=== PATIENT | female | born 1950 | race Caucasian/White ===

== ENCOUNTER 2021-05-31 17:03 | Emergency (ER) | payer BC ==
[~2021-05-31] VITALS: Ht 165.1 cm; Wt 70.3 kg
--- NOTE | 2021-05-31 17:30 | NUR ---
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 PATIENT A/OX4, BREATHING EVEN AND UNLABORED, NO SOB NOTED.
--- NOTE | 2021-05-31 17:40 | NUR ---
PAGED DR. QUIROZ. NOW SPEAKING TO DR. CRANE
--- NOTE | 2021-05-31 17:55 | NUR ---
SIPHONER AT BEDSIDE FOR BLOOD DRAW
[2021-05-31 18:03] LABS: BASOPHILS # (AUTO) 0.1 K/uL (0.0-0.2); BASOPHILS % (AUTO) 1.1 % (0.0-2.0); EOSINOPHILS % (AUTO) 2.8 % (0.0-6.0); HEMATOCRIT 36 % (33-45); LYMPHOCYTES # (AUTO) 1.8 K/uL (0.8-4.8); LYMPHOCYTES % (AUTO) 20.8 % (20.0-44.0); MEAN CORPUSCULAR HGB CONC 34 g/dl (31.0-36.0); MEAN CORPUSCULAR VOLUME 89 fL (82-100); MONOCYTES # (AUTO) 0.6 K/uL (0.1-1.30); MONOCYTES % (AUTO) 7.3 % (2.0-12.0); PLATELET COUNT (AUTO) 383 K/uL (150-450); RED BLOOD CELL COUNT(AUTO) 4.02 MIL/uL (4.0-5.2); WHITE BLOOD COUNT (AUTO) 8.9 K/uL (4.3-11.0)
[2021-05-31 18:10] LABS: CALCIUM, SERUM 8.8 mg/dL (8.5-10.1); CREATININE 0.7 mg/dL (0.6-1.3); POTASSIUM 3.8 mmol/L (3.5-5.1)
--- NOTE | 2021-05-31 20:34 | NUR ---
TOOK OVER PT CARE. PT AAOX4. RESTING COMFORTABLY. ON MONITOR, AND PULSE OX.
[2021-05-31] MEDS ORDERED: ONDANSETRON HCL/PF 4 MG/2 ML VIAL ONE (23:15)
[2021-05-31] MEDS ORDERED: MORPHINE SULFATE INJ 4 MG/ML DISP.SYRIN ONE (23:15)
[2021-05-31] MEDS ORDERED: MORPHINE SULFATE INJ 2 MG/ML DISP.SYRIN IV ONE (23:30)
[2021-05-31] MEDS ORDERED: ONDANSETRON HCL/PF 4 MG/2 ML VIAL IV ONE (23:30)
--- NOTE | 2021-05-31 23:31 | NUR ---
PT REPOSITIONED, RESTING WELL. VSS. CALL LIGHT AT BEDSIDE.
--- NOTE | 2021-06-01 02:15 | NUR ---
PT ASLEEP, RESTING COMFORTABLY.
[2021-06-01] MEDS ORDERED: MORPHINE SULFATE INJ 2 MG/ML DISP.SYRIN ONE (04:06)
[2021-06-01] MEDS ORDERED: MORPHINE SULFATE INJ 2 MG/ML DISP.SYRIN IV ONE (04:30)
--- NOTE | 2021-06-01 05:43 | NUR ---
PT MOVED TO ANOTHER ROOM, IN BED, COMFORTABLY. AWARE OF PLAN OF CARE.
--- NOTE | 2021-06-01 12:18 | NUR ---
RECEIVED A CALL FROM [facility] , PATIENT HAS AN AUTHORIZATION FOR TRANSFER TO [facility], AUTH # IS [id number].
--- NOTE | 2021-06-01 12:39 | NUR ---
[phone] -[facility]
--- NOTE | 2021-06-01 14:32 | NUR ---
ACCEPTED BY DR. GEMMA NG (HOSPITALIST) FOR ER TO ER TRANSFER. # FOR REPORT [phone]
--- NOTE | 2021-06-01 14:35 | NUR ---
SPOKE WITH STU. ARRANGED [facility]. ETA IS 75 MIN.
--- NOTE | 2021-06-01 14:59 | NUR ---
REPORT GIVEN TO [facility] FOR [facility]
[2021-06-01 15:00] VITALS: BP 126/68
--- NOTE | 2021-06-01 15:27 | NUR ---
TRANSPORT AT BEDSIDE.
--- NOTE | 2021-06-01 15:29 | NUR ---
REPORT GIVEN TO TRANSPORT TEAM,[facility],FOR NITA
== END 2021-06-01 15:33 | disposition short-term general hospital (02) ==
LOC: ER 17:18
DX: T84.020A Dislocation of internal right hip prosthesis, initial encounter (principal); E03.9 Hypothyroidism, unspecified; J44.9 Chronic obstructive pulmonary disease, unspecified; K21.9 Gastro-esophageal reflux disease without esophagitis; E66.9 Obesity, unspecified; Z68.25 Body mass index [BMI] 25.0-25.9, adult; Z20.822 Contact with and (suspected) exposure to COVID-19; Z96.641 Presence of right artificial hip joint
CPT/HCPCS: 36415; 71045; 73501; 80048; 85025; 85610; 86850; 87426; 93005; 96374; 96375; 96376; 99285; C9803; J2270 ×2; J2405